=== PATIENT | male | born 1970 | race Caucasian/White ===

== ENCOUNTER → 2020-02-01 | Day surgery (SDC) | payer OTHER ==
--- NOTE | 2020-02-01 11:34 | RADIOLOGY REPORT (SQ) ---
EXAM DESCRIPTION: ARTHRO WRIST INJECTION; FLUORO/NEEDLE PLACEMENT IMAGES COMPLETED DATE/TIME: 02/01/2020 10:49 am REASON FOR STUDY: S63.521D SPRAIN OF RADIOCARPAL JOINT OF RIGHT WRIST, SUBS ENCNTR S63.521D SPRAIN OF RADIOCARPAL JOINT OF RIGHT WRIST, SUBS EN COMPARISON: None. FLUOROSCOPY TIME: 12 SECONDS OF FLUOROSCOPY WAS USED. 1 Images saved to PACS LIMITATIONS: None. PROCEDURE: Procedure, risks, benefits and alternatives explained to patient who then gave written co nsent. The right wrist was marked and a time-out was called for correct marking verification. Radioc arpal site marked using fluoroscopic guidance. Wrist prepped and draped using sterile technique. Lo cathy anesthesia achieved using 0.5 mL 1% lidocaine injection. Hypodermic needle introduced into the j oint space under direct fluoroscopic visualization. 0.5 mL Omnipaque 300 instilled to confirm intra- articular position. Dilute gadolinium solution then injected. Needle removed and entry site covered with sterile bandage. No immediate complications noted. TECHNIQUE: Digital images acquired during fluoroscopy and stored on PACS. Patient immediately take n to the MR suite for additional imaging. INJECTION LOCATION: Right wrist. CONTRAST TYPE AND AMOUNT: 3 mL Dotarem/Saline mixture. IMPRESSION: SUCCESSFUL NEEDLE PLACEMENT AND INJECTION FOR RIGHT WRIST MR ARTHROGRAM. COMMENT: Quality ID #145: Final reports for procedures using fluoroscopy that document radiation exp osure indices, or exposure time and number of fluorographic images (if radiation exposure indices are not available) TECHNICAL DOCUMENTATION: JOB ID: [id number] 2010 [employer]- All Rights Reserved Reading location - IP/workstation name: [email or web address] [id number]
--- NOTE | 2020-02-01 11:34 | RADIOLOGY REPORT (SQ) ---
EXAM DESCRIPTION: ARTHRO WRIST INJECTION; FLUORO/NEEDLE PLACEMENT IMAGES COMPLETED DATE/TIME: 02/01/2020 10:49 am REASON FOR STUDY: S63.521D SPRAIN OF RADIOCARPAL JOINT OF RIGHT WRIST, SUBS ENCNTR S63.521D SPRAIN OF RADIOCARPAL JOINT OF RIGHT WRIST, SUBS EN COMPARISON: None. FLUOROSCOPY TIME: 12 SECONDS OF FLUOROSCOPY WAS USED. 1 Images saved to PACS LIMITATIONS: None. PROCEDURE: Procedure, risks, benefits and alternatives explained to patient who then gave written co nsent. The right wrist was marked and a time-out was called for correct marking verification. Radioc arpal site marked using fluoroscopic guidance. Wrist prepped and draped using sterile technique. Lo cathy anesthesia achieved using 0.5 mL 1% lidocaine injection. Hypodermic needle introduced into the j oint space under direct fluoroscopic visualization. 0.5 mL Omnipaque 300 instilled to confirm intra- articular position. Dilute gadolinium solution then injected. Needle removed and entry site covered with sterile bandage. No immediate complications noted. TECHNIQUE: Digital images acquired during fluoroscopy and stored on PACS. Patient immediately take n to the MR suite for additional imaging. INJECTION LOCATION: Right wrist. CONTRAST TYPE AND AMOUNT: 3 mL Dotarem/Saline mixture. IMPRESSION: SUCCESSFUL NEEDLE PLACEMENT AND INJECTION FOR RIGHT WRIST MR ARTHROGRAM. COMMENT: Quality ID #[id number]: Final reports for procedures using fluoroscopy that document radiation exp osure indices, or exposure time and number of fluorographic images (if radiation exposure indices are not available) TECHNICAL DOCUMENTATION: JOB ID: [id number] 2010 [employer]- All Rights Reserved Reading location - IP/workstation name: [email or web address] [id number]
--- NOTE | 2020-02-02 08:28 | RADIOLOGY REPORT (SQ) ---
EXAM DESCRIPTION: MRI RT UPPER JOINT WITH IMAGES COMPLETED DATE/TIME: 02/01/2020 11:27 am REASON FOR STUDY: S63.521D SPRAIN OF RADIOCARPAL JOINT OF RIGHT WRIST, SUBS ENCNTR S63.521D SPRAIN OF RADIOCARPAL JOINT OF RIGHT WRIST, SUBS EN COMPARISON: None. TECHNIQUE: Right wrist post-arthrogram imaging includes T1 and T1 and T2 fat sat sequences. LIMITATIONS: None. FINDINGS: JOINT DISTENSION: Adequate. No loose body. BONE MARROW: Marrow edema and cystic changes along the subchondral proximal row carpals. Includes sc aphoid and lunotriquetral. No occult fracture. CARPAL ALIGNMENT AND ARTICULATION: Radiocarpal joint space narrowing. No carpal malalignment. SCAPHOLUNATE LIGAMENT: No widening. Heterogeneous without full-thickness tear. LUNATO-TRIQUETRAL LIGAMENT: No widening. Heterogeneous. Doubt tear. TFC COMPLEX: Irregular partial tear along radial insertion. No contrast accumulating in the DRUJ. EXTRINSIC LIGAMENTS AND DISTAL RADIO-ULNAR JOINT: Dorsal and volar distal RUJ ligaments intact withou t subluxation of the distal ulna with respect to the radius. 1-6 EXTENSOR COMPARTMENTS: Normal. Specifically no tendinopathy of the abductor pollicis longus or ex tensor pollicis brevis to suggest de Quervains syndrome. CARPAL TUNNEL AND MEDIAN NERVE: Normal volume and morphology of carpal tunnel proximal at the level o f the radiocarpal joint and distally at the hook of the hamate. No thickening or signal alteration of median nerve. OTHER: No other significant finding. IMPRESSION: 1. Arthropathy as above. Proximal row subchondral cysts with additional narrowing of the radiocarpal articulation. No lee carpal malalignment. 2. No full-thickness tear of the scapholunate ligament. 3. Heterogeneous lunotriquetral ligament, doubt full-thickness tear. 4. Partial tear of the TFCC. TECHNICAL DOCUMENTATION: JOB ID: [id number] 2010 [email or web address]- All Rights Reserved Reading location - IP/workstation name: [email or web address]
== END ==
LOC: RAD 10:03
PROVIDERS: ATTEND Physician Assistant
DX: S63.521D Sprain of radiocarpal joint of right wrist, subsequent encounter (principal); X58.XXXD Exposure to other specified factors, subsequent encounter
CPT/HCPCS: 73222; 25246; 77002; A9576